=== PATIENT | male | born 1960 | race Caucasian/White ===

== ENCOUNTER → 2019-01-27 | Outpatient (CLI) | payer OTHER | LOC: GMAH 15:16 | PROVIDERS: ATTEND Family Medicine | DX: I10 Essential (primary) hypertension (principal); Z12.5 Encounter for screening for malignant neoplasm of prostate ==

== ENCOUNTER → 2019-02-25 | Outpatient (CLI) | payer OTHER ==
--- NOTE | 2019-02-25 13:39 | RAD ---
4 view right knee Indication: M25.561, M25.551 Comparison: None. Impression: Mild to moderate narrowing medial knee compartment with mild narrowing lateral and patellofemoral compartments. Tiny tricompartmental joint line osteophytes. Tiny effusion. Enthesophyte formation quadriceps tendon insertion. No acute fracture. Electronically signed by: Paul Garcia MD 02/25/2019 1:37 PM CDT
--- NOTE | 2019-02-25 13:40 | RAD ---
Single frontal view pelvis Indication: M25.561, M25.551 Comparison: None. Impression: No fracture identified. Evaluation for fracture is limited given the degree of osteopenia. If high clinical concern for acute fracture, correlation with MRI recommended given its greater sensitivity in the osteopenic patient. If the patient cannot tolerate MRI imaging or more urgent imaging is required, CT could be performed, however it is less sensitive in the osteopenic patient when compared to MRI. Mild to moderate bilateral hip osteoarthritis, right greater than left, with joint space narrowing and tiny joint line osteophytes. Electronically signed by: Paul Garcia MD 02/25/2019 1:38 PM CDT
== END ==
LOC: RAD 08:00
PROVIDERS: ATTEND Orthopaedic Surgery
DX: M25.761 Osteophyte, right knee (principal); M25.861 Other specified joint disorders, right knee; M16.0 Bilateral primary osteoarthritis of hip

== ENCOUNTER → 2019-08-31 | Outpatient (CLI) | payer OTHER ==
--- NOTE | 2019-08-31 18:08 | MRI ---
EXAM DESCRIPTION: Lumbar Spine w/o Contrast : Magnetic Resonance Imaging. CLINICAL HISTORY: LOW BACK PAIN COMPARISON: LUMBAR TECHNIQUE: Multiplanar, multiple standard sequences, non contrast MRI, lumbar spine. Technically difficult study due to patient large body habitus. FINDINGS: L5-S1: The disc is well visualized on axial T2 series 501, image 3. Disc desiccation and disc space loss. 3 mm retrolisthesis. Desiccated air in the disc versus calcification. Posterior broad-based bulge with mild to moderate canal narrowing. Mild narrowing of the bilateral subarticular recesses. Hypertrophic facet arthrosis and thickening of the ligament on the right. Disc and bone left foraminal stenosis with moderate to severe right foraminal narrowing. L4-L5: Disc desiccation with minimal disc space loss. Bilateral and posterior endplate reactive changes with small posterior broad-based bulge. Minimal bilateral facet arthrosis and ligament thickening. Canal narrowing. Bilateral mild foraminal narrowing. L3-L4: Disc desiccation and minimal disc space loss. Anterior endplate reactive changes. Posterior disc with no bulging. Small Schmorl's node superior L4 endplate. Minimal bilateral facet hypertrophic arthrosis and ligament thickening with mild canal narrowing. Bilateral mild foraminal narrowing. L2-L3: Disc with normal signal and disc space preserved. No posterior bulging. Posterior bilateral hypertrophic facet arthrosis and ligament thickening. Mild canal narrowing. Bilateral foramina are patent. L1-L2: Disc desiccation with disc space preserved. Tiny posterior midline bulge. Hyperintense T2 annular fissure in the segment bulging into the left foramen. Bilateral hypertrophic facet arthrosis and ligament thickening more severe on the left. Minimal canal narrowing. Mild foraminal narrowing left more than right. T12-L1 disc signal normal with disc space preserved. Conus termination is below the disc space. Canal and foramina are patent. No scoliosis significantly. Paravertebral soft tissues are stable anterior rotation of the right renal hilum and cyst or solid mass medial right kidney.. Distal cord normal signal and caliber. Normal marrow signal in the remaining vertebral bodies and the posterior elements. Vertebral bodies are not compressed at any level. IMPRESSION: 1. L5-S1 disc desiccation and disc space loss with air or calcification in the disc space. Moderate canal narrowing and narrowing of the bilateral subarticular recesses. Left foraminal stenosis by disc bone encroachment and possible compromise left L5 nerve. 2. Posterior broad-based L4-L5 disc bulge. Bilateral hypertrophic changes in the facets and ligaments with mild canal narrowing and bilateral mild foraminal narrowing. 3. Desiccated L1-L2 disc with disc bulging into the left foramen with annular fissure. Hypertrophic posterior elements and canal narrowing. Mild canal narrowing at L2-L3 due to hypertrophic posterior elements with normal signal in the disc. L3-L4 desiccated disc with no bulging. Mild canal narrowing secondary to hypertrophic posterior elements.. Electronically signed by: Pj Bower MD 08/31/2019 6:06 PM CDT
== END ==
LOC: MRI 09:50
PROVIDERS: ATTEND Family Medicine
DX: M51.37 Other intervertebral disc degeneration, lumbosacral region (principal); M51.36 Other intervertebral disc degeneration, lumbar region; M51.86 Other intervertebral disc disorders, lumbar region

== ENCOUNTER → 2020-09-06 | Outpatient (CLI) | payer BC | LOC: GMA MATASK 10:47 | PROVIDERS: ATTEND Family Medicine | DX: I10 Essential (primary) hypertension (principal); Z12.5 Encounter for screening for malignant neoplasm of prostate; E11.21 Type 2 diabetes mellitus with diabetic nephropathy ==